=== PATIENT | female | born 1975 | race Caucasian/White ===

== ENCOUNTER 2021-07-31 15:29 | Observation (INO) ==
[2021-07-31] MEDS ORDERED: LEVOFLOXACIN INJ 750 MG/150 ML PREMIX IV STA (16:43)
[2021-07-31] MEDS ORDERED: ONDANSETRON 4 MG/2 ML VIAL IV STA (16:59)
[2021-07-31] MEDS ORDERED: MORPHINE 2 MG/1 ML SYRINGE IV STA (16:59)
[2021-07-31] MEDS ORDERED: LACTATED RINGERS 1,000 ML IV SCH (17:00)
[2021-07-31] MEDS ORDERED: ONDANSETRON 4 MG/2 ML VIAL IV PRN (19:26)
[2021-07-31] MEDS ORDERED: ACETAMINOPHEN 325 MG TABLET PO PRN (19:26)
[2021-07-31] MEDS ORDERED: MORPHINE 2 MG/1 ML SYRINGE IV PRN (19:26)
[2021-07-31] MEDS: LACTATED RINGERS 1,000 ML IV SCH (21:06)
[2021-08-01] MEDS: LACTATED RINGERS 1,000 ML IV SCH (05:49)
[2021-08-01 08:28] LABS: Basophils # 0.1 10*3/uL (0.0-0.2); Basophils % 1.7 % (0.0-0.8); Eosinophils # 0.2 10*3/uL (0.0-0.87); Hematocrit 38.3 VOL% (35.7-47.0); Hemoglobin 12.7 GM/DL (12.0-16.0); Immature Granulocytes % 0.3 %; Immature Granulocytes Absolute 0.01 #; Lymphocytes # 1.9 10*3/uL (1.4-4.0); Lymphocytes % 52.9 % (21.3-54.2); Mean Corpuscular HGB Conc 33.2 GM/DL (32-36); Mean Corpuscular Volume 87.8 FL (87-102); Mean Platelet Volume 8.5 FL (9.6-12.0); Monocytes % 9.4 % (1.7-12.7); Neutrophils % 30.7 % (38.7-73.9); Platelet Count 260 T/CUMM (130-400); Red Blood Count 4.36 MC/CUMM (3.8-5.5); Red Cell Distribution Width 11.9 % (9.3-17.3); White Blood Count 3.6 T/CUMM (4-12)
[2021-08-01 08:39] LABS: Osmolality,Calculated 278.3 MOS/KG (273-304); Potassium 4.2 MMOL/L (3.5-5.1)
[2021-08-01 08:52] LABS: Atypical Lymphocytes Few; Eosinophils 5 % (0-10); Lymphocytes 63 % (20-55); Segmented Neutrophils 24 % (50-85); Total Cells Counted 100
[2021-08-01 08:53] LABS: Hypochromia 1+; Microcytosis 1+; Ovalocytes Slight; Platelet Estimate Normal
[2021-08-01] MEDS ORDERED: PANTOPRAZOLE 40 MG TABLET PO SCH (09:00)
[2021-08-01] MEDS ORDERED: CLINDAMYCIN INJ 900 MG/50 ML PREMIX IV ONE (09:32)
[2021-08-01] MEDS ORDERED: MIDAZOLAM 2 MG/2 ML VIAL ONE (10:02)
[2021-08-01] MEDS ORDERED: ROCURONIUM 50 MG/5 ML VIAL IV ONE (10:02)
[2021-08-01] MEDS ORDERED: fentaNYL 100 MCG/2 ML VIAL ONE (10:02)
[2021-08-01] MEDS ORDERED: DEXAMETHASONE 4 MG/1 ML VIAL ONE ×2 (10:02→10:41)
[2021-08-01] MEDS ORDERED: GLYCOPYRROLATE 0.4 MG/2 ML VIAL ONE ×2 (10:02→10:48)
[2021-08-01] MEDS ORDERED: ONDANSETRON 4 MG/2 ML VIAL ONE (10:02)
[2021-08-01] MEDS ORDERED: propofoL 200 MG/20 ML VIAL IV ONE (10:02)
[2021-08-01] MEDS ORDERED: LIDOCAINE 2% 5 ML VIAL ONE (10:02)
[2021-08-01] MEDS ORDERED: TISSUE ADHESIVE 1 EACH APPLICATOR TOP ONE (10:04)
[2021-08-01] MEDS ORDERED: LACTATED RINGERS 1,000 ML IV SCH (10:30)
[2021-08-01] MEDS ORDERED: KETAMINE 500 MG/10 ML VIAL ONE (10:33)
[2021-08-01] MEDS ORDERED: SEVOFLURANE 1 UNIT/15 MINUTE INH ONE (10:38)
[2021-08-01] MEDS ORDERED: NEOSTIGMINE 10 MG/10 ML VIAL ONE (10:48)
[2021-08-01] MEDS ORDERED: LACTATED RINGERS 1,000 ML IV ONE (10:55)
[2021-08-01] MEDS: HYDROmorphone 1 MG/1 ML SYRINGE IV PRN ×2 (11:30→11:40)
[2021-08-01] MEDS ORDERED: HYDROmorphone 1 MG/1 ML SYRINGE ONE (11:34)
[2021-08-01] MEDS ORDERED: ONDANSETRON 4 MG/2 ML VIAL IV PRN (11:40)
[2021-08-01 12:34] VITALS: BP 126/61
== END 2021-08-01 15:50 | disposition home or self-care (01) ==
LOC: N.ED 15:29 → N.3E 15:29
PROVIDERS: ADMIT Student in an Organized Health Care Education/Training Program; ATTEND Student in an Organized Health Care Education/Training Program